=== PATIENT | female | born 1965 | race Two or more races ===

== ENCOUNTER 2016-11-11 21:42 | Emergency (ER) | payer OTHER, MEDICAID ==
[~2016-11-11] VITALS: Ht 160 cm; Wt 47.6 kg
[2016-11-11 22:28] LABS: Basophils # (auto) 0 uL; Basophils % (auto) 0.3 % (0.0-2.0); Eosinophils # (auto) 0 uL; Hematocrit 45.1 % (36.0-46.0); Hemoglobin 14.9 g/dL (12.2-16.2); Lymphocytes # (auto) 1.4 uL; Mean Corpuscular Hemoglobin 29.4 pg (28.0-32.0); Mean Corpuscular Volume 89.1 fL (80.0-100.0); Mean Platelet Volume 7.2 fL (7.4-10.4); Monocytes # (auto) 0.2 uL; Monocytes % (auto) 1.8 % (0.0-12.0); Neutrophils # (auto) 8.2 uL; Neutrophils % (auto) 83.9 % (37.0-80.0); Platelet Count (auto) 377 10^3/uL (140-450); Red Cell Distribution Width 13.8 % (11.6-16.0); White Blood Cell 9.8 10^3/uL (4.4-10.8)
[2016-11-11 22:54] LABS: Albumin 3.1 g/dL (3.4-5.0); Alkaline Phosphatase 89 U/L (45-117); Anion Gap 10 (5-15); Aspartate Aminotransferase 31 U/L (15-37); BUN/Creatinine Ratio 48.1; Bilirubin, Total 0.2 mg/dL (0.2-1.0); Blood Urea Nitrogen 25 mg/dL (7-18); Calcium 8.5 mg/dL (8.5-10.1); Carbon Dioxide 25 mmol/L (21-32); Chloride 105 mmol/L (98-107); GFR African American 159 mL/min; GFR Non-African American 132 mL/min; Glucose 127 mg/dL (74-106); Potassium 3.9 mmol/L (3.5-5.1); Sodium 140 mmol/L (136-145); Total Protein 7.3 g/dL (6.4-8.2)
[2016-11-12] MEDS ORDERED: SODIUM CHLORIDE 0.9% 1,000 ML IV ONE (00:15)
[2016-11-12] MEDS ORDERED: ACETAMINOPHEN 325 MG TAB PO ONE (00:15)
[2016-11-12] MEDS ORDERED: LEVOFLOXACIN 750MG 150 ML IV ONE (00:15)
[2016-11-12 00:44] LABS: Urine Bilirubin Negative (Negative); Urine Blood Negative /uL (Negative); Urine Color Yellow (Yellow); Urine Glucose Normal (Normal); Urine Ketone Negative (Negative); Urine Nitrite Negative (Negative); Urine RBC 1 /hpf (0 - 4); Urine Squamous Epithelial Cell FEW /hpf (<5); Urine Urobilinogen Normal (Negative); Urine pH 5.5 (5.0-8.0)
[2016-11-12 04:38] VITALS: BP 120/82
== END 2016-11-12 05:11 | disposition short-term general hospital (02) ==
LOC: EDBD 21:42 → ER 21:42
DX: J20.9 Acute bronchitis, unspecified (principal); R91.8 Other nonspecific abnormal finding of lung field; E86.0 Dehydration; G35 Multiple sclerosis
CPT/HCPCS: 36415; 36600; 51702; 71010; 80053; 81001; 82805; 83605; 83735; 84484; 85025; 87040; 93005; 96365; 99285; J1956; J7030